=== PATIENT | female | born 1995 | race Caucasian/White ===

== ENCOUNTER 2024-05-03 13:09 | Outpatient (CLI) | payer BC ==
[2024-05-03 13:56] LABS: CHOL/HDL RATIO 3.1 (0.00-4.99); CHOLESTEROL 195 MG/DL (0-200); HDL CHOLESTEROL 62 MG/DL (35-60); LDL CHOLESTEROL 105 MG/DL (50-100); TRIGLYCERIDES 91 MG/DL (20-135)
== END 2024-05-03 23:59 | disposition home or self-care (01) ==
LOC: LAB 13:09
PROVIDERS: ATTEND Physician Assistant Medical
DX: E78.5 Hyperlipidemia, unspecified (principal)
CPT/HCPCS: 36415; 80061

== ENCOUNTER 2024-09-25 11:52 | Outpatient (CLI) | payer BC ==
[2024-09-25 12:45] LABS: BASOPHILS % (AUTO) 0.5 % (0-1); EOSINOPHILS # (AUTO) 0.1 X10'3 (0-0.9); EOSINOPHILS % (AUTO) 2.1 % (0-6); HEMATOCRIT 39.5 % (35.0-45.0); HEMOGLOBIN 13.1 g/dl (12.0-16.0); LYMPHOCYTES # (AUTO) 2.7 X10'3 (1.1-4.8); LYMPHOCYTES % (AUTO) 43.5 % (21-51); MEAN CORPUSCULAR HEMOGLOBIN 30.6 PG (27.0-31.0); MEAN CORPUSCULAR HGB CONC 33.1 g/dL (33.0-36.5); MEAN CORPUSCULAR VOLUME 92.2 FL (78-98); MEAN PLATELET VOLUME 7.2 FL (7.4-10.4); MONOCYTES # (AUTO) 0.4 X10'3 (0-0.9); MONOCYTES % (AUTO) 7.3 % (2-12); NEUTROPHILS # (AUTO) 2.8 X10'3 (1.8-7.7); NEUTROPHILS % (AUTO) 46.6 % (42-75); PLATELET COUNT 403 X10'3 (140-440); RED BLOOD COUNT 4.29 X10'6 (4.20-5.60); RED CELL DISTRIBUTION WIDTH 12.8 % (11.5-14.5); WHITE BLOOD COUNT 6.1 X10'3 (4.5-11.0)
[2024-09-25 13:04] LABS: % IRON SATURATION 24 % (11-46); IRON 82 UG/DL (49-151); TOTAL IRON BINDING CAPACITY 343 UG/DL (259-388)
[2024-09-25 13:08] LABS: ALANINE AMINOTRANSFERASE 44 U/L (12-78); ALBUMIN/GLOBULIN RATIO 0.8 (1.1-1.5); ALKALINE PHOSPHATASE 58 IU/L (46-116); ANION GAP 9 (8-16); ASPARTATE AMINO TRANSFERASE 22 U/L (10-37); BILIRUBIN,TOTAL 0.8 MG/DL (0.1-1.0); BLOOD UREA NITROGEN 13 MG/DL (7-18); BUN/CREATININE RATIO 16.3 (10.0-20.0); CALCIUM 8.8 MG/DL (8.5-10.1); CHLORIDE 103 MMOL/L (99-107); GLUCOSE 90 MG/DL (70-104); SODIUM 139 MMOL/L (135-145); TOTAL CARBON DIOXIDE 27.2 MMOL/L (24-32); TOTAL PROTEIN 8.9 G/DL (6.4-8.2); eGFR 84 ML/MIN
[2024-09-25 13:24] LABS: CHOL/HDL RATIO 4.1 (0.00-4.99); CHOLESTEROL 223 MG/DL (0-200); FERRITIN 104 NG/ML (8-252); HDL CHOLESTEROL 54 MG/DL (35-60); LDL CHOLESTEROL 143 MG/DL (50-100); THYROID STIMULATING HORMONE 1.92 ulU/ml (0.34-4.50); TRIGLYCERIDES 83 MG/DL (20-135)
[2024-09-25 13:34] LABS: HEMOGLOBIN A1C 5.2 % (4.5-6.2)
== END 2024-09-25 23:59 | disposition home or self-care (01) ==
LOC: RAD 11:52
PROVIDERS: ATTEND Physician Assistant Medical
DX: I10 Essential (primary) hypertension (principal); D51.9 Vitamin B12 deficiency anemia, unspecified; R73.03 Prediabetes; E78.5 Hyperlipidemia, unspecified; E55.9 Vitamin D deficiency, unspecified; E66.9 Obesity, unspecified; Z13.29 Encounter for screening for other suspected endocrine disorder; R53.82 Chronic fatigue, unspecified; D50.9 Iron deficiency anemia, unspecified
CPT/HCPCS: 36415; 80053; 80061; 82607; 82652; 82728; 83036; 83540; 83550; 84443; 84481; 85025

== ENCOUNTER 2025-05-09 10:18 | Outpatient (CLI) | payer BC ==
[2025-05-09 10:37] LABS: MEAN PLATELET VOLUME 6.6 FL (7.4-10.4); RED CELL DISTRIBUTION WIDTH 12.7 % (11.5-14.5)
[2025-05-09 10:51] LABS: CHOL/HDL RATIO 3.7 (0.00-4.99); LDL CHOLESTEROL 107 MG/DL (50-100)
== END 2025-05-09 23:59 | disposition home or self-care (01) ==
LOC: RAD 10:18
PROVIDERS: ATTEND Physician Assistant Medical
DX: E78.5 Hyperlipidemia, unspecified (principal); D50.9 Iron deficiency anemia, unspecified
CPT/HCPCS: 36415; 80061; 85025